=== PATIENT | male | born 1965 | race Caucasian/White ===

== ENCOUNTER → 2016-10-15 | Day surgery (SDC) | payer OTHER ==
[~2016-10-15] MED LIST: AMLODIPINE-BEN1 EAC3 PO; AUGMENTIN PO; BLOOD PRESSURE; FLAGYL PO; HYDROCODON-ACE1 EAC9 PO; LORTAB 5/500 TA1 TA1 PO; PENICILLIN V P500 MG PO; VOLTAREN75 MG PO
--- NOTE | ~2016-10-15 | OR ---
Unit #: [id number] #: [id number] Patient: AURORA MIRANDA [id number] [address] [place], [place] [address] [id number] O MR#: [id number] NAME: AURORA MIRANDA ROOM: Date of Procedure: 10/15/2016 Admission Date: 10/15/2016 Surgeon: Moshe Harris M.D. : 1965 Attending Physician: Moshe Harris M.D. Referring Physician: Moshe Harris M.D. Primary Care Physician: Mt Hernandez M.D. OPERATIVE REPORT PREOPERATIVE DIAGNOSIS Screening colonoscopy. POSTOPERATIVE DIAGNOSIS Normal colon. PROCEDURE PERFORMED Colonoscopy to cecum. ANESTHESIA IV sedation. COMPLICATIONS None. INDICATIONS FOR PROCEDURE The patient is a 51-year-old gentleman, who presents for screening colonoscopy. DESCRIPTION OF PROCEDURE The patient was taken to the operating theater and placed in left lateral decubitus position. IV sedation was initiated. Digital rectal exam was normal. Colonoscope was then passed under direct vision and navigated to the cecum. The patient had excellent prep. I visualized the entire colon. I saw no evidence of neoplastic lesions, diverticula, colitis, or other findings. His anastomosis was widely patent. He tolerated the procedure well and sent to the recovery room in good condition. PLAN Recommend repeat colonoscopy in 10 years. Dictated by... Sammy Condon/elisha TD: 10/15/2016 16:55 JOB #: [id number] Unit #: [id number] #: [id number] Patient: AURORA MIRANDA OPERATIVE REPORT X Moshe Harris MD X PROCEDURE OPERATIVE NOTE
== END | disposition home or self-care (01) ==
LOC: COPS 10:39
DX: Z12.11 Encounter for screening for malignant neoplasm of colon (principal); I10 Essential (primary) hypertension; F17.200 Nicotine dependence, unspecified, uncomplicated; Z90.49 Acquired absence of other specified parts of digestive tract
CPT/HCPCS: J2250